=== PATIENT | male | born 1940 | race Caucasian/White ===

== ENCOUNTER 2016-10-25 19:31 | Emergency (ER) | payer BC ==
--- NOTE | 2016-10-25 19:53 | Emergency Department Record ---
History of Present Illness - General Chief Complaint: Abdominal Pain Stated Complaint: LOWER ABD PAIN Time Seen by Provider: 10/25/16 19:51 Source: Patient Mode of Arrival: Ambulatory Limitations: No limitations - History of Present Illness Initial Comments: The patient is here due to having intermittent AP for about a week. He states he has been having mild suprapubic AP at night from about 3am-6am. The pain does seem to go away with urination but he denies any dysuria. During the day the patient has no pain, discomfort, nausea or vomiting. The patient also denies any fever. He did have a UTI a few weeks ago so his Urologist did tell him to get a UA done. The patient was on Cipro for that recent UTI. MD Complaint: Abdominal pain Onset/Timin -: Week(s) Location: Suprapubic Radiation: None Consistency: Intermittent Improves With: Movement Worsens With: Rest Associated Symptoms: Denies other symptoms - Related Data Home Medications Medication Instructions Recorded Confirmed Last Taken Alfuzosin HCl [Alfuzosin HCl ER] 10 mg PO DAILY 10/25/16 10/25/16 Unknown Aspirin [Aspir-Low] 81 mg PO DAILY 10/25/16 10/25/16 Unknown Previous Rx's Medication Instructions Recorded Sulfamethoxazole/Trimethoprim 1 tab PO BID #20 tab 10/25/16 [Bactrim Ds] Allergies Allergy/AdvReac Type Severity Reaction Status Date / Time local used in dentistry AdvReac RAPID Uncoded 10/25/16 19:36 HEART RATE Travel Screening - Travel/Exposure Within Last 30 Days Have you traveled within the last 30 days?: No - Travel Symptoms Symptom Screening: None Review of Systems Constitutional: Denies: Chills, Fever Eyes: Denies: Eye discharge ENT: Denies: Congestion Respiratory: Denies: Cough, Dyspnea Past Medical History - SOCIAL HISTORY Smoking Status: Never smoker - RESPIRATORY Hx Respiratory Disorders: No - CARDIOVASCULAR Hx Cardio Disorders: No - NEURO Hx Neuro Disorders: Yes Comment:: "dry eyes" - GI Hx GI Disorders: No - Hx Genitourinary Disorders: Yes Hx Prostate Problems: Yes (BPH) - ENDOCRINE Hx Endocrine Disorders: No - MUSCULOSKELETAL Hx Musculoskeletal Disorders: No - PSYCH Hx Psych Problems: No - HEMATOLOGY/ONCOLOGY Hx Hematology/Oncology Disorders: No Family Medical History Any Significant Family History?: Yes Hx Depression: Brother/Sister *Depression Comment: Schizophrenia Hx Diabetes: Brother/Sister Hx Heart Disease: Brother/Sister Physical Exam - General General Appearance: Alert, Oriented x3, Cooperative, No acute distress - Head Head exam: Atraumatic, Normocephalic, Normal inspection - Eye Eye exam: Normal appearance, PERRL - Neck Neck exam: Normal inspection, Full ROM. negative: Tenderness - Respiratory Respiratory exam: Normal lung sounds bilaterally. negative: Respiratory distress - Cardiovascular Cardiovascular Exam: Regular rate, Normal rhythm, Normal heart sounds - GI/Abdominal GI/Abdominal exam: Soft, Normal bowel sounds. negative: Guarding, Rebound, Rigid, Tenderness - exam: Circumcision. negative: Scrotal swelling, Testicular tenderness - Neurological Neurological exam: Normal gait. negative: Abnormal gait, Motor sensory deficit Course Vital Signs 10/25/16 19:43 Temperature 98.5 F Pulse Rate [ 65 Pulse Ox Probe] Respiratory 16 Rate Blood Pressure 143/84 [Left Arm] Pulse Ox 96 - Reevaluation(s) Reevaluation #1: The patient is doing very well at this time. He denies any pain or discomfort. I did explain to him that we will place him on Bactrim and have him F/U with his Urologist next week. 10/25/16 20:50 Medical Decision Making - Data Complexity MDM Data: Labs Ordered and/or Reviewed - Lab Data Result diagrams: 10/25/16 20:05 10/25/16 20:05 Disposition Disposition: Discharge Clinical Impression: Urinary Tract Infection Qualifiers: Urinary tract infection type: site unspecified Hematuria presence: without hematuria Qualified Code(s): N39.0 - Urinary tract infection, site not specified Disposition: Home, Self-Care Condition: (1) Good Instructions: Urinary Tract Infection in Men (ED) Additional Instructions: Please take the Bactrim as directed. Please contact your Urologist as directed next week. Return to the ER if worse. Prescriptions: Sulfamethoxazole/Trimethoprim [Bactrim Ds] 1 tab PO BID #20 tab Forms: Patient Portal Access Time of Disposition: 20:52
[2016-10-25 20:14] LABS: BASO % 0.6 % (0-6); EOS % 3.2 % (0-6); GRAN % 58.4 % (47-80); LYMPH % 23.1 % (16-45); MEAN CELL VOLUME 92.3 fl (81-97); MEAN CORPUSCULAR HEMOGLOBIN 30.8 pg (27-33); MEAN CORPUSCULAR HGB CONC 33.3 g/dl (32-36); MEAN PLATELET VOLUME 10.2 fl (7.4-10.4); MONO % 14.7 % (0-9); PLATELET COUNT 160 K/uL (130-400); RED BLOOD COUNT 4.55 M/uL (4.40-5.70); RED CELL DISTRIBUTION WIDTH 12.7 % (11.5-14.5)
[2016-10-25 20:25] LABS: URINE APPEARANCE SL CLOUDY; URINE BILIRUBIN NEGATIVE (NEGATIVE); URINE BLOOD TRACE-I (NEGATIVE); URINE COLOR YELLOW; URINE GLUCOSE (UA) NEGATIVE (NEGATIVE); URINE KETONE NEGATIVE (NEGATIVE); URINE LEUKOCYTE ESTERASE MODERATE (NEGATIVE); URINE NITRITE NEGATIVE (NEGATIVE); URINE PROTEIN NEGATIVE (NEGATIVE); URINE UROBILINOGEN 0.2 E.U./dL (0.20 - 1.00)
[2016-10-25 20:26] LABS: ANION GAP 14.4 (7-16); BLOOD UREA NITROGEN 20 mg/dL (9-20); CARBON DIOXIDE 26.6 mmol/L (22-30); CREATININE 1.1 mg/dL (0.66-1.25); EST GLOMERULAR FILTRATION RATE > 60 ml/min; GLUCOSE,RANDOM 86 mg/dL (70-110)
[2016-10-25 20:29] LABS: URINE BACTERIA 2+; URINE EPITHELIAL CELLS NONE SEEN (FEW); URINE WBC 21 - 35 (0-2/hpf)
[2016-10-25] MEDS: TMP/SMZ 160MG/800MG TAB PO ONE (21:19)
== END 2016-10-25 21:25 | disposition home or self-care (01) ==
LOC: ER 19:31
DX: N39.0 Urinary tract infection, site not specified (principal); R10.30 Lower abdominal pain, unspecified
CPT/HCPCS: 99283 ×2; 85025; 80048; 81001; J3490